=== PATIENT | male | born 1940 | race Caucasian/White ===

== ENCOUNTER 2018-09-27 12:51 | Outpatient (CLI) | payer MEDICARE ==
[~2018-09-27 12:51] MED LIST: Gadobenate Dimeglumine 529 MG/1 ML (20ML VIAL) ONE
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
--- NOTE | 2018-09-27 15:05 | MRI ---
MRI BRAIN WITH AND WITHOUT CONTRAST: INDICATIONS: Senile degeneration of brain. Memory loss. TECHNIQUE: Multiplanar, multisequential imaging of the brain obtained with and without contrast. FINDINGS: Mild to moderate cortical volume loss. The ventricles have normal size and position. Mild to modera te chronic ischemic white matter change. No evidence of restricted diffusion. No evidence of mass or edema. No abnormal enhancement. Intracranial internal carotid arteries, proximal cerebral arteries, and basilar arteries demonstrate expected flow voids. The dural venous sinuses are patent. IMPRESSION: Moderate cortical atrophy and moderate chronic ischemic white matter change. No acute process appare nt. POS: [facility]
== END 2018-09-27 12:52 | disposition home or self-care (01) ==
LOC: BICMRI 12:51
PROVIDERS: ATTEND Psychiatry & Neurology Neurology
DX: G31.1 Senile degeneration of brain, not elsewhere classified (principal); G31.9 Degenerative disease of nervous system, unspecified
CPT/HCPCS: 70210; 70250; 70553; 82565

== ENCOUNTER 2021-01-21 14:25 | Observation (INO) | payer MEDICARE ==
[2021-01-21 15:04] LABS: #Basophils 0.1 thou/uL (0.0-0.2); #Eosinphils 0.1 thou/uL (0.0-0.7); #Lymphocytes 1.1 thou/uL (1.20-3.40); #Neutrophils 10.5 thou/uL (1.40-6.50); %Basophils 0.5 % (0.0-1.0); %Eosinophils 0.5 % (0.0-10.0); %Lymphocytes 8.4 % (21.0-51.0); %Monocytes 7.9 % (0.0-10.0); %Neutrophils 82.7 % (42.0-75.0); Hemoglobin 12.4 g/dL (14.0-18.0); Mean Corpuscular HGB CONC 33.5 g/dL (32.0-36.0); Mean Corpuscular Hemoglobin 31.4 pg (27.0-31.0); Mean Corpuscular Volume 93.6 fL (78.0-98.0); Mean Platelet Volume 7.1 fL (7.4-10.4); Platelet Count 275 thou/uL (130-400); RBC Distribution Width 12.7 % (11.5-14.5); Red Blood Cell (RBC) Count 3.94 mill/uL (4.70-6.10); White Blood Cell (WBC) Count 12.7 thou/uL (4.8-10.8)
[2021-01-21] MEDS ORDERED: Bupivacaine 0.25% 10 ML VIAL ONE (15:07)
[2021-01-21 15:14] LABS: PTT 26.5 sec (22.9-36.1); Prothrombin Time 13.4 sec (12.0-14.7)
[2021-01-21 15:47] LABS: Albumin 4.1 g/dL (3.4-4.8)
[2021-01-21 15:48] LABS: Chloride 108 mmol/L (98-107); Potassium 4.2 mmol/L (3.5-5.1); Sodium 140 mmol/L (136-145)
[2021-01-21 15:49] LABS: Calcium 9.3 mg/dL (7.8-10.44); Glucose 164 mg/dL (83-110)
[2021-01-21 15:50] LABS: Globulin 2.8 g/dL (2.4-3.5); Protein, Total 6.9 g/dL (5.8-8.1)
[2021-01-21 15:51] LABS: Anion Gap 16 mmol/L (10-20); Bilirubin, Total 0.4 mg/dL (0.2-1.2); Carbon Dioxide 20 mmol/L (23-31)
[2021-01-21 15:52] LABS: Alkaline Phosphatase 155 U/L (40-110)
[2021-01-21 15:53] LABS: Calc. Creatinine Clearance 0 mL/min (70-130)
[2021-01-21] MEDS ORDERED: Morphine 4 MG/ML VIAL ONE (15:53)
[2021-01-21] MEDS ORDERED: Ondansetron PF 4 MG/2 ML Vial ONE (15:53)
[2021-01-21 15:54] LABS: BUN (Urea Nitrogen) 23 mg/dL (8.4-25.7)
[2021-01-21 15:55] LABS: ALT (SGPT) 25 U/L (8-55); AST (SGOT) 21 U/L (5-34)
[2021-01-21] MEDS ORDERED: Boostrix 0.5 ML (Tdap) VIAL ONE (16:24)
[2021-01-21] MEDS ORDERED: CEFAZOLIN 1 GM VIAL ONE (16:24)
[2021-01-21] MEDS ORDERED: Dextrose 50% Abboject 50 ML SYRINGE SLOW IVP PRN (16:58)
[2021-01-21] MEDS ORDERED: Ondansetron PF 4 MG/2 ML Vial IVP PRN (16:58)
[2021-01-21] MEDS ORDERED: hydrALAZINE 20 MG/ML VIAL SLOW IVP PRN (16:58)
[2021-01-21] MEDS ORDERED: Insulin Regular 300 UNITS/3 ML VIAL SC PRN ×2 (16:58)
[2021-01-21] MEDS ORDERED: Dextrose 5% in Water 1,000 ML IV PRN (16:58)
[2021-01-21] MEDS ORDERED: Acetaminophen 500 MG TAB PO PRN (17:03)
[2021-01-21 17:59] LABS: Magnesium 1.8 mg/dL (1.6-2.6); Phosphorus 2.1 mg/dL (2.3-4.7)
[2021-01-21] MEDS ORDERED: Bacitracin 1 PK ONE (18:03)
[2021-01-21] MEDS ORDERED: Acetaminophen 500 MG TAB ONE (18:10)
[2021-01-21] MEDS: Bacitracin 1 PK TOP SCH (22:43)
[2021-01-21 23:10] VITALS: BMI 29.7
[2021-01-22 05:51] LABS: #Lymphocytes 1.1 thou/uL (1.20-3.40); #Monocytes 1.4 thou/uL (0.11-0.59); #Neutrophils 10.8 thou/uL (1.40-6.50); %Basophils 0.2 % (0.0-1.0); %Eosinophils 0.3 % (0.0-10.0); %Monocytes 10.1 % (0.0-10.0); %Neutrophils 81.4 % (42.0-75.0); Hemoglobin 11.5 g/dL (14.0-18.0); Mean Corpuscular HGB CONC 33.4 g/dL (32.0-36.0); Mean Corpuscular Hemoglobin 31.8 pg (27.0-31.0); Mean Corpuscular Volume 95.3 fL (78.0-98.0); Platelet Count 231 thou/uL (130-400); RBC Distribution Width 12.7 % (11.5-14.5); Red Blood Cell (RBC) Count 3.61 mill/uL (4.70-6.10); White Blood Cell (WBC) Count 13.3 thou/uL (4.8-10.8)
[2021-01-22 06:14] LABS: Anion Gap 12 mmol/L (10-20); BUN (Urea Nitrogen) 21 mg/dL (8.4-25.7); Calc. Creatinine Clearance 74 mL/min (70-130); Calcium 8.9 mg/dL (7.8-10.44); Carbon Dioxide 24 mmol/L (23-31); Chloride 109 mmol/L (98-107); Glucose 136 mg/dL (83-110); Magnesium 1.8 mg/dL (1.6-2.6); Phosphorus 2.4 mg/dL (2.3-4.7); Potassium 3.7 mmol/L (3.5-5.1); Sodium 141 mmol/L (136-145)
[2021-01-22] MEDS ORDERED: traMADol HCl 50 MG TAB PO PRN (06:36)
[2021-01-22] MEDS: Bacitracin 1 PK TOP SCH (08:16)
[2021-01-22] MEDS ORDERED: Hydrochlorothiazide 25 MG TAB PO SCH (09:00)
[2021-01-22] MEDS ORDERED: Finasteride 5 MG TAB PO SCH (09:00)
[2021-01-22] MEDS ORDERED: Cholecalciferol 1,000 UNITS (25 MCG) TAB PO SCH (09:00)
[2021-01-22] MEDS ORDERED: Metoprolol Tartrate 25 MG TAB PO SCH (09:00)
[2021-01-22] MEDS ORDERED: Potassium Phosphate 30 MMOL, Magnesium Sulfate 2 GM in Sodium Chloride 0.9% 250 ML IVPB SCH (09:00)
[2021-01-22] MEDS ORDERED: metFORMIN 850 MG TAB PO SCH (09:00)
[2021-01-22] MEDS ORDERED: Magnesium Sulfate 2 GM in Sodium Chloride 0.9% 100 ML IVPB SCH (09:00)
[2021-01-22 11:39] LABS: SARS-CoV-2 PCR by NAA Not Detected (NotDetected)
[2021-01-22 12:30] VITALS: BP 152/74; TEMP 96.7
[2021-01-22] MEDS ORDERED: Tamsulosin HCl 0.4 MG CAP PO SCH (21:00)
[2021-01-22] MEDS ORDERED: Donepezil HCl 5 MG TAB PO SCH (21:00)
== END 2021-01-22 16:15 ==
LOC: ERS 14:25 → SURG B 17:04 → INTOOBSV 17:04
PROVIDERS: ADMIT Surgery; ATTEND Surgery
DX: S06.5X0A Traumatic subdural hemorrhage without loss of consciousness, initial encounter (principal); S02.19XA Other fracture of base of skull, initial encounter for closed fracture; S02.832A Fracture of medial orbital wall, left side, initial encounter for closed fracture; S02.122A Fracture of orbital roof, left side, initial encounter for closed fracture; S02.842A Fracture of lateral orbital wall, left side, initial encounter for closed fracture; S02.40DA Maxillary fracture, left side, initial encounter for closed fracture; S61.011A Laceration without foreign body of right thumb without damage to nail, initial encounter; S61.411A Laceration without foreign body of right hand, initial encounter; S40.212A Abrasion of left shoulder, initial encounter; R55 Syncope and collapse; F32.9 Major depressive disorder, single episode, unspecified; G89.11 Acute pain due to trauma; I10 Essential (primary) hypertension; E11.9 Type 2 diabetes mellitus without complications; G30.9 Alzheimer's disease, unspecified; F02.80 Dementia in other diseases classified elsewhere, unspecified severity, without behavioral disturbance, psychotic disturbance, mood disturbance, and anxiety; I25.2 Old myocardial infarction; K21.9 Gastro-esophageal reflux disease without esophagitis; E78.5 Hyperlipidemia, unspecified; I25.10 Atherosclerotic heart disease of native coronary artery without angina pectoris; M19.041 Primary osteoarthritis, right hand; Z20.822 Contact with and (suspected) exposure to COVID-19; Z95.1 Presence of aortocoronary bypass graft; Z79.84 Long term (current) use of oral hypoglycemic drugs; Z79.82 Long term (current) use of aspirin; Z79.899 Other long term (current) drug therapy; W18.39XA Other fall on same level, initial encounter; Y92.096 Garden or yard of other non-institutional residence as the place of occurrence of the external cause
CPT/HCPCS: 70450 ×2; 72125; 73030; 73110; 73140; 80048; 80053; 82962 ×2; 83735 ×2; 84100 ×2; 84484; 85025 ×2; 85610; 85730; 90715; 93005; 96374; 97139 ×4; G0378 ×3; U0003; U0005; 36415; 36416; J0690; J1815; J2270; J2405; J3475; J7030; S0020

== ENCOUNTER 2021-03-09 16:39 | Inpatient (IN) | payer MEDICARE ==
[~2021-03-09 16:39] MED LIST changes: -Gadobenate Dimeglumine 529 MG/1 ML (20ML VIAL) ONE; +Iopamidol-370 76% 500 ML 1 ML ONE
[2021-03-09 17:58] LABS: #Basophils 0.1 thou/uL (0.0-0.2); #Eosinphils 0.1 thou/uL (0.0-0.7); #Lymphocytes 0.7 thou/uL (1.20-3.40); #Monocytes 1.2 thou/uL (0.11-0.59); #Neutrophils 14.3 thou/uL (1.40-6.50); %Basophils 0.3 % (0.0-1.0); %Eosinophils 0.7 % (0.0-10.0); %Lymphocytes 4.4 % (21.0-51.0); %Monocytes 7.1 % (0.0-10.0); %Neutrophils 87.5 % (42.0-75.0); Hemoglobin 12.4 g/dL (14.0-18.0); Mean Corpuscular HGB CONC 31.8 g/dL (32.0-36.0); Mean Corpuscular Hemoglobin 29.1 pg (27.0-31.0); Mean Corpuscular Volume 91.4 fL (78.0-98.0); Platelet Count 401 thou/uL (130-400); Red Blood Cell (RBC) Count 4.27 mill/uL (4.70-6.10); White Blood Cell (WBC) Count 16.4 thou/uL (4.8-10.8)
[2021-03-09 18:13] LABS: ALT (SGPT) 46 U/L (8-55); AST (SGOT) 35 U/L (5-34); Albumin 3.2 g/dL (3.4-4.8); Alkaline Phosphatase 136 U/L (40-110); Anion Gap 16 mmol/L (10-20); BUN (Urea Nitrogen) 24 mg/dL (8.4-25.7); Bilirubin, Total 1.1 mg/dL (0.2-1.2); Calc. Creatinine Clearance 0 mL/min (70-130); Calcium 8.7 mg/dL (7.8-10.44); Carbon Dioxide 30 mmol/L (23-31); Chloride 93 mmol/L (98-107); Globulin 3.7 g/dL (2.4-3.5); Glucose 148 mg/dL (83-110); Potassium 3.1 mmol/L (3.5-5.1); Protein, Total 6.9 g/dL (5.8-8.1); Sodium 136 mmol/L (136-145)
[2021-03-09 18:39] LABS: CKMB 0.8 ng/mL (0-6.6)
[2021-03-09] MEDS ORDERED: Aspirin Chewable 81 MG TAB ONE (18:40)
[2021-03-09] MEDS ORDERED: Dexamethasone 10 MG/ML VIAL ONE (18:40)
[2021-03-09] MEDS ORDERED: Azithromycin 500 MG VIAL ONE (18:40)
[2021-03-09] MEDS ORDERED: Enoxaparin Sodium 100 MG/ML SYRINGE ONE (19:24)
[2021-03-09] MEDS ORDERED: Acetaminophen 325 MG TAB PO PRN (20:26)
[2021-03-09] MEDS ORDERED: Ondansetron ODT 4 MG TAB PO PRN (20:26)
[2021-03-09] MEDS ORDERED: Ondansetron PF 4 MG/2 ML Vial IVP PRN (20:26)
[2021-03-09] MEDS ORDERED: Acetaminophen 650 MG Suppository PR PRN (20:26)
[2021-03-09] MEDS ORDERED: Dextrose 50% Abboject 50 ML SYRINGE SLOW IVP PRN (21:06)
[2021-03-09] MEDS ORDERED: HumaLOG 300 UNITS/3 ML VIAL SC PRN (21:06)
[2021-03-09] MEDS ORDERED: Dextrose 5% in Water 1,000 ML IV PRN (21:06)
[2021-03-09 21:28] LABS: Lactic Acid 2.1 mmol/L (0.5-2.2)
[2021-03-10 00:26] LABS: Troponin I 0.073 ng/mL (< 0.028)
[2021-03-10 05:44] LABS: Anion Gap 17 mmol/L (10-20); BUN (Urea Nitrogen) 24 mg/dL (8.4-25.7); Calc. Creatinine Clearance 82 mL/min (70-130); Calcium 8.1 mg/dL (7.8-10.44); Carbon Dioxide 27 mmol/L (23-31); Chloride 98 mmol/L (98-107); Glucose 187 mg/dL (83-110); Potassium 3.2 mmol/L (3.5-5.1); Sodium 139 mmol/L (136-145)
[2021-03-10 05:53] LABS: Hemoglobin 11.3 g/dL (14.0-18.0); Mean Corpuscular HGB CONC 31.3 g/dL (32.0-36.0); Mean Corpuscular Hemoglobin 28.8 pg (27.0-31.0); Mean Corpuscular Volume 92.1 fL (78.0-98.0); Mean Platelet Volume 7.5 fL (7.4-10.4); Platelet Count 307 thou/uL (130-400); RBC Distribution Width 12.9 % (11.5-14.5); Red Blood Cell (RBC) Count 3.91 mill/uL (4.70-6.10); White Blood Cell (WBC) Count 12.7 thou/uL (4.8-10.8)
[2021-03-10] MEDS: HumaLOG 300 UNITS/3 ML VIAL SC PRN ×3 (06:35→16:28)
[2021-03-10 08:12] LABS: Band 5 % (5-11); Lymphocytes 7 % (21-51); MDiff Complete? YES; Monocytes 3 % (0-10); Neutrophil 85 % (42-75)
[2021-03-10] MEDS: Enoxaparin Sodium 100 MG/ML SYRINGE SC SCH ×2 (09:33→20:52)
[2021-03-10] MEDS: Dexamethasone 10 MG/ML VIAL SLOW IVP SCH (09:34)
[2021-03-10] MEDS: Ascorbic Acid 500 mg Chewable Tablet PO SCH (09:34)
[2021-03-10] MEDS: Zinc Sulfate 220 MG CAP PO SCH (09:34)
[2021-03-10] MEDS: Pantoprazole 40 MG VIAL IVP SCH (09:34)
[2021-03-10] MEDS: Cholecalciferol (Vitamin D3) 400 UNITS TAB PO SCH (09:34)
[2021-03-10] MEDS ORDERED: Potassium Chloride 20 MEQ TAB PO SCH (09:45)
[2021-03-11 05:53] LABS: Anion Gap 13 mmol/L (10-20); BUN (Urea Nitrogen) 29 mg/dL (8.4-25.7); CK (CPK) 30 U/L (30-200); CRP (Inflammatory) 14.76 mg/dL (= or < 0.5); Calc. Creatinine Clearance 81 mL/min (70-130); Calcium 8.4 mg/dL (7.8-10.44); Carbon Dioxide 29 mmol/L (23-31); Chloride 101 mmol/L (98-107); Glucose 110 mg/dL (83-110); Potassium 3.2 mmol/L (3.5-5.1); Sodium 140 mmol/L (136-145)
[2021-03-11 06:02] LABS: Hemoglobin 11.8 g/dL (14.0-18.0); Mean Corpuscular HGB CONC 32.1 g/dL (32.0-36.0); Mean Corpuscular Hemoglobin 29.7 pg (27.0-31.0); Mean Corpuscular Volume 92.5 fL (78.0-98.0); Mean Platelet Volume 7.2 fL (7.4-10.4); Platelet Count 434 thou/uL (130-400); Red Blood Cell (RBC) Count 3.97 mill/uL (4.70-6.10); White Blood Cell (WBC) Count 18.4 thou/uL (4.8-10.8)
[2021-03-11 06:03] LABS: Band 5 % (5-11); Eosinophils 1 % (0-10); Lymphocytes 7 % (21-51); MDiff Complete? YES; Monocytes 2 % (0-10); Neutrophil 85 % (42-75)
[2021-03-11] MEDS: Enoxaparin Sodium 100 MG/ML SYRINGE SC SCH ×2 (08:44→20:42)
[2021-03-11] MEDS: Ascorbic Acid 500 mg Chewable Tablet PO SCH (08:44)
[2021-03-11] MEDS: Cholecalciferol (Vitamin D3) 400 UNITS TAB PO SCH (08:45)
[2021-03-11] MEDS: Pantoprazole 40 MG VIAL IVP SCH (08:45)
[2021-03-11] MEDS: Dexamethasone 10 MG/ML VIAL SLOW IVP SCH (08:45)
[2021-03-11] MEDS: Zinc Sulfate 220 MG CAP PO SCH (08:45)
[2021-03-11] MEDS: Potassium Chloride 20 MEQ in Premix Bag 1 BAG IVPB SCH ×2 (10:46→12:27)
[2021-03-11] MEDS ORDERED: Potassium Chloride 20 MEQ TAB PO SCH (12:15)
[2021-03-11] MEDS: HumaLOG 300 UNITS/3 ML VIAL SC PRN ×2 (12:33→17:52)
[2021-03-12 05:55] LABS: #Eosinphils 0.1 thou/uL (0.0-0.7); #Lymphocytes 1.2 thou/uL (1.20-3.40); #Monocytes 1.1 thou/uL (0.11-0.59); #Neutrophils 15.1 thou/uL (1.40-6.50); %Basophils 0.1 % (0.0-1.0); %Eosinophils 0.8 % (0.0-10.0); %Lymphocytes 6.8 % (21.0-51.0); %Neutrophils 86.3 % (42.0-75.0); Hemoglobin 12.2 g/dL (14.0-18.0); Mean Corpuscular HGB CONC 30.4 g/dL (32.0-36.0); Mean Platelet Volume 6.9 fL (7.4-10.4); Platelet Count 522 thou/uL (130-400); Red Blood Cell (RBC) Count 4.35 mill/uL (4.70-6.10); White Blood Cell (WBC) Count 17.5 thou/uL (4.8-10.8)
[2021-03-12 06:18] LABS: Anion Gap 17 mmol/L (10-20); BUN (Urea Nitrogen) 28 mg/dL (8.4-25.7); Calc. Creatinine Clearance 76 mL/min (70-130); Calcium 8.4 mg/dL (7.8-10.44); Carbon Dioxide 26 mmol/L (23-31); Chloride 106 mmol/L (98-107); Glucose 133 mg/dL (83-110); Potassium 3.5 mmol/L (3.5-5.1); Sodium 145 mmol/L (136-145)
[2021-03-12] MEDS: Enoxaparin Sodium 100 MG/ML SYRINGE SC SCH ×2 (09:00→20:53)
[2021-03-12] MEDS: Zinc Sulfate 220 MG CAP PO SCH (09:01)
[2021-03-12] MEDS: Dexamethasone 10 MG/ML VIAL SLOW IVP SCH (09:01)
[2021-03-12] MEDS: Ascorbic Acid 500 mg Chewable Tablet PO SCH (09:01)
[2021-03-12] MEDS: Cholecalciferol (Vitamin D3) 400 UNITS TAB PO SCH (09:01)
[2021-03-12] MEDS: HumaLOG 300 UNITS/3 ML VIAL SC PRN ×2 (13:07→16:52)
[2021-03-13 05:48] LABS: #Eosinphils 0.1 thou/uL (0.0-0.7); #Lymphocytes 1.6 thou/uL (1.20-3.40); #Monocytes 0.9 thou/uL (0.11-0.59); #Neutrophils 10.2 thou/uL (1.40-6.50); %Basophils 0.3 % (0.0-1.0); %Eosinophils 0.8 % (0.0-10.0); %Lymphocytes 12.7 % (21.0-51.0); %Monocytes 6.7 % (0.0-10.0); %Neutrophils 79.4 % (42.0-75.0); Hemoglobin 11.5 g/dL (14.0-18.0); Mean Corpuscular HGB CONC 31.7 g/dL (32.0-36.0); Mean Corpuscular Hemoglobin 29.4 pg (27.0-31.0); Mean Corpuscular Volume 92.8 fL (78.0-98.0); Mean Platelet Volume 6.8 fL (7.4-10.4); Platelet Count 468 thou/uL (130-400); RBC Distribution Width 13.1 % (11.5-14.5); Red Blood Cell (RBC) Count 3.91 mill/uL (4.70-6.10); White Blood Cell (WBC) Count 12.8 thou/uL (4.8-10.8)
[2021-03-13 06:26] LABS: Anion Gap 14 mmol/L (10-20); BUN (Urea Nitrogen) 27 mg/dL (8.4-25.7); Calc. Creatinine Clearance 86 mL/min (70-130); Carbon Dioxide 24 mmol/L (23-31); Chloride 107 mmol/L (98-107); Glucose 111 mg/dL (83-110); Potassium 3.7 mmol/L (3.5-5.1); Sodium 141 mmol/L (136-145)
[2021-03-13] MEDS: Cholecalciferol (Vitamin D3) 400 UNITS TAB PO SCH (09:36)
[2021-03-13] MEDS: Ascorbic Acid 500 mg Chewable Tablet PO SCH (09:36)
[2021-03-13] MEDS: Enoxaparin Sodium 100 MG/ML SYRINGE SC SCH ×2 (09:36→20:52)
[2021-03-13] MEDS: Zinc Sulfate 220 MG CAP PO SCH (09:36)
[2021-03-13] MEDS: Dexamethasone 10 MG/ML VIAL SLOW IVP SCH (09:37)
[2021-03-13] MEDS: HumaLOG 300 UNITS/3 ML VIAL SC PRN (17:50)
[2021-03-14 05:53] LABS: #Eosinphils 0.1 thou/uL (0.0-0.7); #Lymphocytes 1.5 thou/uL (1.20-3.40); #Monocytes 0.7 thou/uL (0.11-0.59); #Neutrophils 12.2 thou/uL (1.40-6.50); %Basophils 0.1 % (0.0-1.0); %Eosinophils 0.5 % (0.0-10.0); %Lymphocytes 10.3 % (21.0-51.0); %Monocytes 4.8 % (0.0-10.0); %Neutrophils 84.4 % (42.0-75.0); Hemoglobin 11.9 g/dL (14.0-18.0); Mean Corpuscular HGB CONC 31.4 g/dL (32.0-36.0); Mean Corpuscular Hemoglobin 29.2 pg (27.0-31.0); Platelet Count 452 thou/uL (130-400); RBC Distribution Width 13.1 % (11.5-14.5); Red Blood Cell (RBC) Count 4.06 mill/uL (4.70-6.10); White Blood Cell (WBC) Count 14.5 thou/uL (4.8-10.8)
[2021-03-14 06:12] LABS: Anion Gap 13 mmol/L (10-20); BUN (Urea Nitrogen) 25 mg/dL (8.4-25.7); Calc. Creatinine Clearance 85 mL/min (70-130); Calcium 8.2 mg/dL (7.8-10.44); Carbon Dioxide 26 mmol/L (23-31); Chloride 109 mmol/L (98-107); Glucose 100 mg/dL (83-110); Potassium 3.7 mmol/L (3.5-5.1); Sodium 144 mmol/L (136-145)
[2021-03-14] MEDS: Zinc Sulfate 220 MG CAP PO SCH (09:18)
[2021-03-14] MEDS: Ascorbic Acid 500 mg Chewable Tablet PO SCH (09:18)
[2021-03-14] MEDS: Cholecalciferol (Vitamin D3) 400 UNITS TAB PO SCH (09:18)
[2021-03-14] MEDS: Dexamethasone 10 MG/ML VIAL SLOW IVP SCH (09:19)
[2021-03-14] MEDS: Enoxaparin Sodium 100 MG/ML SYRINGE SC SCH (09:19)
[2021-03-14] MEDS: Apixaban 5 MG TAB PO SCH (20:42)
[2021-03-15 06:16] LABS: #Eosinphils 0.1 thou/uL (0.0-0.7); #Lymphocytes 1.3 thou/uL (1.20-3.40); #Monocytes 0.7 thou/uL (0.11-0.59); #Neutrophils 11.5 thou/uL (1.40-6.50); %Basophils 0.2 % (0.0-1.0); %Eosinophils 0.5 % (0.0-10.0); %Lymphocytes 9.7 % (21.0-51.0); %Monocytes 5.3 % (0.0-10.0); %Neutrophils 84.3 % (42.0-75.0); Hemoglobin 11.3 g/dL (14.0-18.0); Mean Corpuscular HGB CONC 32.7 g/dL (32.0-36.0); Mean Corpuscular Hemoglobin 30.4 pg (27.0-31.0); Mean Corpuscular Volume 92.8 fL (78.0-98.0); Mean Platelet Volume 6.8 fL (7.4-10.4); Platelet Count 439 thou/uL (130-400); RBC Distribution Width 13.1 % (11.5-14.5); Red Blood Cell (RBC) Count 3.71 mill/uL (4.70-6.10); White Blood Cell (WBC) Count 13.7 thou/uL (4.8-10.8)
[2021-03-15 06:41] LABS: Anion Gap 11 mmol/L (10-20); BUN (Urea Nitrogen) 26 mg/dL (8.4-25.7); Calc. Creatinine Clearance 97 mL/min (70-130); Calcium 8.1 mg/dL (7.8-10.44); Carbon Dioxide 26 mmol/L (23-31); Chloride 110 mmol/L (98-107); Glucose 113 mg/dL (83-110); Potassium 3.9 mmol/L (3.5-5.1); Sodium 143 mmol/L (136-145)
[2021-03-15] MEDS: Cholecalciferol (Vitamin D3) 400 UNITS TAB PO SCH (11:21)
[2021-03-15] MEDS: Apixaban 5 MG TAB PO SCH ×2 (11:21→21:33)
[2021-03-15] MEDS: Ascorbic Acid 500 mg Chewable Tablet PO SCH (11:21)
[2021-03-15] MEDS: Zinc Sulfate 220 MG CAP PO SCH (11:22)
[2021-03-15] MEDS: Dexamethasone 10 MG/ML VIAL SLOW IVP SCH (11:22)
[2021-03-15] MEDS: HumaLOG 300 UNITS/3 ML VIAL SC PRN (19:10)
[2021-03-16 05:44] LABS: ALT (SGPT) 31 U/L (8-55); AST (SGOT) 23 U/L (5-34); Albumin 2.7 g/dL (3.4-4.8); Alkaline Phosphatase 109 U/L (40-110); Anion Gap 10 mmol/L (10-20); BUN (Urea Nitrogen) 25 mg/dL (8.4-25.7); Bilirubin, Total 0.5 mg/dL (0.2-1.2); CRP (Inflammatory) 4.97 mg/dL (= or < 0.5); Calc. Creatinine Clearance 99 mL/min (70-130); Calcium 8.1 mg/dL (7.8-10.44); Carbon Dioxide 23 mmol/L (23-31); Chloride 111 mmol/L (98-107); Globulin 3.2 g/dL (2.4-3.5); Glucose 109 mg/dL (83-110); Potassium 3.9 mmol/L (3.5-5.1); Protein, Total 5.9 g/dL (5.8-8.1); Sodium 140 mmol/L (136-145)
[2021-03-16] MEDS: Apixaban 5 MG TAB PO SCH ×2 (09:03→20:55)
[2021-03-16] MEDS: Zinc Sulfate 220 MG CAP PO SCH (09:03)
[2021-03-16] MEDS: Benzonatate 100 MG CAP PO PRN (09:03)
[2021-03-16] MEDS: Ascorbic Acid 500 mg Chewable Tablet PO SCH (09:03)
[2021-03-16] MEDS: Dexamethasone 10 MG/ML VIAL SLOW IVP SCH (09:04)
[2021-03-16] MEDS: Cholecalciferol (Vitamin D3) 400 UNITS TAB PO SCH (09:04)
[2021-03-16] MEDS: HumaLOG 300 UNITS/3 ML VIAL SC PRN (10:52)
[2021-03-17] MEDS: Dexamethasone 10 MG/ML VIAL SLOW IVP SCH (09:15)
[2021-03-17] MEDS: Benzonatate 100 MG CAP PO PRN (09:15)
[2021-03-17] MEDS: Ascorbic Acid 500 mg Chewable Tablet PO SCH (09:15)
[2021-03-17] MEDS: Apixaban 5 MG TAB PO SCH ×2 (09:15→19:52)
[2021-03-17] MEDS: Cholecalciferol (Vitamin D3) 400 UNITS TAB PO SCH (09:15)
[2021-03-17] MEDS: Zinc Sulfate 220 MG CAP PO SCH (09:15)
[2021-03-17] MEDS: HumaLOG 300 UNITS/3 ML VIAL SC PRN (17:48)
[2021-03-18] MEDS: Ascorbic Acid 500 mg Chewable Tablet PO SCH (09:17)
[2021-03-18] MEDS: Zinc Sulfate 220 MG CAP PO SCH (09:18)
[2021-03-18] MEDS: Cholecalciferol (Vitamin D3) 400 UNITS TAB PO SCH (09:18)
[2021-03-18] MEDS: Apixaban 5 MG TAB PO SCH ×2 (09:18→21:24)
[2021-03-18] MEDS: Dexamethasone 10 MG/ML VIAL SLOW IVP SCH (09:19)
[2021-03-18] MEDS ORDERED: Polyethylene Glycol 3350 17 GM Packet PO PRN (10:54)
[2021-03-18] MEDS: Simethicone Chewable 80 MG TAB PO SCH ×3 (12:09→21:24)
[2021-03-18] MEDS: HumaLOG 300 UNITS/3 ML VIAL SC PRN (17:55)
[2021-03-18] MEDS: Donepezil HCl 5 MG TAB PO SCH (21:24)
[2021-03-18] MEDS: Tamsulosin HCl 0.4 MG CAP PO SCH (21:24)
[2021-03-19] MEDS: Simethicone Chewable 80 MG TAB PO SCH ×4 (09:25→22:40)
[2021-03-19] MEDS: Apixaban 5 MG TAB PO SCH ×2 (09:25→21:13)
[2021-03-19] MEDS: Ascorbic Acid 500 mg Chewable Tablet PO SCH (09:25)
[2021-03-19] MEDS: Benzonatate 100 MG CAP PO PRN (09:25)
[2021-03-19] MEDS: Cholecalciferol (Vitamin D3) 400 UNITS TAB PO SCH (09:25)
[2021-03-19] MEDS: Zinc Sulfate 220 MG CAP PO SCH (09:26)
[2021-03-19] MEDS: Metoprolol Tartrate 25 MG TAB PO SCH (09:26)
[2021-03-19] MEDS: Finasteride 5 MG TAB PO SCH (09:27)
[2021-03-19] MEDS: Dexamethasone 10 MG/ML VIAL SLOW IVP SCH (09:33)
[2021-03-19] MEDS: HumaLOG 300 UNITS/3 ML VIAL SC PRN (11:49)
[2021-03-19 13:02] LABS: #Lymphocytes 0.5 thou/uL (1.20-3.40); #Monocytes 0.7 thou/uL (0.11-0.59); #Neutrophils 12.2 thou/uL (1.40-6.50); %Basophils 0.1 % (0.0-1.0); %Eosinophils 0.2 % (0.0-10.0); %Lymphocytes 3.8 % (21.0-51.0); %Monocytes 5.3 % (0.0-10.0); %Neutrophils 90.7 % (42.0-75.0); Mean Corpuscular HGB CONC 31.8 g/dL (32.0-36.0); Mean Corpuscular Hemoglobin 29.1 pg (27.0-31.0); Mean Corpuscular Volume 91.7 fL (78.0-98.0); Mean Platelet Volume 6.7 fL (7.4-10.4); Platelet Count 454 thou/uL (130-400); RBC Distribution Width 13.4 % (11.5-14.5); Red Blood Cell (RBC) Count 4.11 mill/uL (4.70-6.10); White Blood Cell (WBC) Count 13.4 thou/uL (4.8-10.8)
[2021-03-19 13:25] LABS: Anion Gap 11 mmol/L (10-20); BUN (Urea Nitrogen) 25 mg/dL (8.4-25.7); Calc. Creatinine Clearance 66 mL/min (70-130); Calcium 8.5 mg/dL (7.8-10.44); Carbon Dioxide 22 mmol/L (23-31); Chloride 110 mmol/L (98-107); Glucose 172 mg/dL (83-110); Potassium 4.3 mmol/L (3.5-5.1); Sodium 139 mmol/L (136-145)
[2021-03-19] MEDS: Tamsulosin HCl 0.4 MG CAP PO SCH (21:13)
[2021-03-19] MEDS: Donepezil HCl 5 MG TAB PO SCH (21:13)
[2021-03-19] MEDS: Atorvastatin Calcium 40 MG TAB PO SCH (21:13)
[2021-03-20] MEDS: Apixaban 5 MG TAB PO SCH ×2 (10:14→22:12)
[2021-03-20] MEDS: Ascorbic Acid 500 mg Chewable Tablet PO SCH (10:14)
[2021-03-20] MEDS: Benzonatate 100 MG CAP PO PRN (10:14)
[2021-03-20] MEDS: Metoprolol Tartrate 25 MG TAB PO SCH (10:15)
[2021-03-20] MEDS: Simethicone Chewable 80 MG TAB PO SCH ×3 (10:15→22:12)
[2021-03-20] MEDS: Zinc Sulfate 220 MG CAP PO SCH (10:16)
[2021-03-20] MEDS: Finasteride 5 MG TAB PO SCH (10:16)
[2021-03-20] MEDS: Cholecalciferol (Vitamin D3) 400 UNITS TAB PO SCH (10:16)
[2021-03-20] MEDS: Dexamethasone 10 MG/ML VIAL SLOW IVP SCH (10:21)
[2021-03-20] MEDS: HumaLOG 300 UNITS/3 ML VIAL SC PRN ×2 (10:37→17:19)
[2021-03-20 11:35] VITALS: BMI 27.2
[2021-03-20] MEDS: Tamsulosin HCl 0.4 MG CAP PO SCH (22:12)
[2021-03-20] MEDS: Donepezil HCl 5 MG TAB PO SCH (22:12)
[2021-03-20] MEDS: Atorvastatin Calcium 40 MG TAB PO SCH (22:13)
[2021-03-21] MEDS: Simethicone Chewable 80 MG TAB PO SCH ×5 (00:29→20:28)
[2021-03-21 05:29] LABS: #Lymphocytes 1.2 thou/uL (1.20-3.40); #Monocytes 0.8 thou/uL (0.11-0.59); #Neutrophils 9.6 thou/uL (1.40-6.50); %Basophils 0.3 % (0.0-1.0); %Eosinophils 0.4 % (0.0-10.0); %Lymphocytes 10.5 % (21.0-51.0); %Monocytes 6.9 % (0.0-10.0); Hemoglobin 11.5 g/dL (14.0-18.0); Mean Corpuscular HGB CONC 30.9 g/dL (32.0-36.0); Mean Corpuscular Hemoglobin 28.7 pg (27.0-31.0); Mean Corpuscular Volume 93.1 fL (78.0-98.0); Mean Platelet Volume 6.6 fL (7.4-10.4); Platelet Count 443 thou/uL (130-400); RBC Distribution Width 13.4 % (11.5-14.5); Red Blood Cell (RBC) Count 4.02 mill/uL (4.70-6.10); White Blood Cell (WBC) Count 11.7 thou/uL (4.8-10.8)
[2021-03-21 05:50] LABS: Anion Gap 11 mmol/L (10-20); BUN (Urea Nitrogen) 27 mg/dL (8.4-25.7); Calc. Creatinine Clearance 75 mL/min (70-130); Calcium 8.5 mg/dL (7.8-10.44); Carbon Dioxide 23 mmol/L (23-31); Chloride 111 mmol/L (98-107); Glucose 107 mg/dL (83-110); Potassium 3.8 mmol/L (3.5-5.1); Sodium 141 mmol/L (136-145)
[2021-03-21] MEDS: Dexamethasone 10 MG/ML VIAL SLOW IVP SCH (08:31)
[2021-03-21] MEDS: Cholecalciferol (Vitamin D3) 400 UNITS TAB PO SCH (08:31)
[2021-03-21] MEDS: Apixaban 5 MG TAB PO SCH ×2 (08:31→20:28)
[2021-03-21] MEDS: Zinc Sulfate 220 MG CAP PO SCH (08:31)
[2021-03-21] MEDS: Finasteride 5 MG TAB PO SCH (08:32)
[2021-03-21] MEDS: Metoprolol Tartrate 25 MG TAB PO SCH (08:32)
[2021-03-21] MEDS: Ascorbic Acid 500 mg Chewable Tablet PO SCH (08:32)
[2021-03-21] MEDS: Donepezil HCl 5 MG TAB PO SCH (20:28)
[2021-03-21] MEDS: Atorvastatin Calcium 40 MG TAB PO SCH (20:28)
[2021-03-21] MEDS: Tamsulosin HCl 0.4 MG CAP PO SCH (20:28)
[2021-03-22 05:19] LABS: #Eosinphils 0.2 thou/uL (0.0-0.7); #Lymphocytes 1.6 thou/uL (1.20-3.40); #Neutrophils 12.2 thou/uL (1.40-6.50); %Basophils 0.1 % (0.0-1.0); %Eosinophils 1.1 % (0.0-10.0); %Lymphocytes 10.9 % (21.0-51.0); %Monocytes 6.8 % (0.0-10.0); %Neutrophils 81.1 % (42.0-75.0); Mean Corpuscular HGB CONC 33.4 g/dL (32.0-36.0); Mean Corpuscular Hemoglobin 30.7 pg (27.0-31.0); Mean Corpuscular Volume 91.8 fL (78.0-98.0); Mean Platelet Volume 6.9 fL (7.4-10.4); Platelet Count 474 thou/uL (130-400); RBC Distribution Width 13.3 % (11.5-14.5); Red Blood Cell (RBC) Count 3.93 mill/uL (4.70-6.10)
[2021-03-22 05:46] LABS: Anion Gap 10 mmol/L (10-20); BUN (Urea Nitrogen) 25 mg/dL (8.4-25.7); Calc. Creatinine Clearance 71 mL/min (70-130); Calcium 8.4 mg/dL (7.8-10.44); Carbon Dioxide 23 mmol/L (23-31); Chloride 111 mmol/L (98-107); Glucose 106 mg/dL (83-110); Potassium 4.4 mmol/L (3.5-5.1); Sodium 140 mmol/L (136-145)
[2021-03-22] MEDS: Simethicone Chewable 80 MG TAB PO SCH ×3 (09:05→16:03)
[2021-03-22] MEDS: Ascorbic Acid 500 mg Chewable Tablet PO SCH (09:17)
[2021-03-22] MEDS: Dexamethasone 10 MG/ML VIAL SLOW IVP SCH (09:17)
[2021-03-22] MEDS: Apixaban 5 MG TAB PO SCH (09:17)
[2021-03-22] MEDS: Zinc Sulfate 220 MG CAP PO SCH (09:19)
[2021-03-22] MEDS: Metoprolol Tartrate 25 MG TAB PO SCH (09:19)
[2021-03-22] MEDS: Cholecalciferol (Vitamin D3) 400 UNITS TAB PO SCH (09:20)
[2021-03-22] MEDS: Finasteride 5 MG TAB PO SCH (09:20)
[2021-03-22 15:27] VITALS: BP 126/72; TEMP 97.8
[2021-03-22] MEDS: HumaLOG 300 UNITS/3 ML VIAL SC PRN (16:03)
== END 2021-03-22 18:52 | DRG 177 ==
LOC: ERS 16:39 → 2SW 20:09
PROVIDERS: ADMIT Student in an Organized Health Care Education/Training Program; ATTEND Internal Medicine
PROC: 8E0ZXY6 Isolation (ICD-10-PCS; principal; 2021-03-09)
DX: U07.1 COVID-19 (principal); J96.01 Acute respiratory failure with hypoxia; J12.82 Pneumonia due to coronavirus disease 2019; I26.99 Other pulmonary embolism without acute cor pulmonale; I10 Essential (primary) hypertension; F03.90 Unspecified dementia, unspecified severity, without behavioral disturbance, psychotic disturbance, mood disturbance, and anxiety; I25.10 Atherosclerotic heart disease of native coronary artery without angina pectoris; K21.9 Gastro-esophageal reflux disease without esophagitis; R79.89 Other specified abnormal findings of blood chemistry; E78.5 Hyperlipidemia, unspecified; R53.1 Weakness; E87.6 Hypokalemia; I25.2 Old myocardial infarction; Z95.1 Presence of aortocoronary bypass graft; Z79.899 Other long term (current) drug therapy
CPT/HCPCS: 36415; 36416; 70450; 71045; 71275; 80048; 80053; 82550; 82553; 82728; 83605; 83880; 84484; 85025; 86140; 87040; 93005; 93306; 96365; 96366; 96372; 96375; C9113; J0456; J1100; J1650; J1815; J1956; J3480; Q9967

== ENCOUNTER 2024-04-06 20:22 | Emergency (ER) | payer MEDICARE ==
[2024-04-06 22:22] LABS: #Basophils 0.03 10x3/uL (0.0-0.2); %Basophils 0.4 % (0.0-1.0); %Eosinophils 1.1 % (0.0-10.0); %Lymphocytes 15.4 % (21.0-51.0); %Monocytes 11.4 % (0.0-10.0); %Neutrophils 70.6 % (42.0-75.0); Hematocrit 39.7 % (42.0-52.0); Hemoglobin 12.7 g/dL (14.0-18.0); Mean Corpuscular Hemoglobin 30.2 pg (27.0-31.0); Mean Corpuscular Volume 94.3 fL (78.0-98.0); Mean Platelet Volume 9.6 fL (7.4-10.4); Platelet Count 212 10x3/uL (130-400); Red Blood Cell (RBC) Count 4.21 mill/uL (4.70-6.10)
[2024-04-06 23:06] LABS: Troponin I Less than 0.010 ng/mL (< 0.028)
[2024-04-06 23:30] LABS: ALT (SGPT) 23 U/L (8-55); AST (SGOT) 20 U/L (5-34); Albumin 3.5 g/dL (3.4-4.8); Alkaline Phosphatase 213 U/L (40-110); Anion Gap 15 mmol/L (10-20); BUN (Urea Nitrogen) 19 mg/dL (8.4-25.7); Bilirubin, Total 0.5 mg/dL (0.2-1.2); Calc. Creatinine Clearance 0 mL/min (70-130); Calcium 9.1 mg/dL (7.8-10.44); Carbon Dioxide 22 mmol/L (23-31); Chloride 108 mmol/L (98-107); Estimated GFR 47; Globulin 3.2 g/dL (2.4-3.5); Glucose 233 mg/dL (83-110); Potassium 3.6 mmol/L (3.5-5.1); Protein, Total 6.7 g/dL (5.8-8.1); Sodium 141 mmol/L (136-145)
== END 2024-04-07 05:53 | disposition home or self-care (01) ==
LOC: ERS 20:22
DX: R53.83 Other fatigue (principal); R53.1 Weakness; E11.9 Type 2 diabetes mellitus without complications; I10 Essential (primary) hypertension
CPT/HCPCS: 36415; 71045; 80053; 83880; 84443; 84484; 85025; 85379; 93005

== ENCOUNTER 2024-04-09 22:38 | Observation (INO) | payer MEDICARE ==
[2024-04-09 23:10] LABS: #Basophils 0.05 10x3/uL (0.0-0.2); %Basophils 0.7 % (0.0-1.0); %Eosinophils 0.9 % (0.0-10.0); %Lymphocytes 15.6 % (21.0-51.0); %Neutrophils 72.2 % (42.0-75.0); Hemoglobin 12.4 g/dL (14.0-18.0); Mean Corpuscular Hemoglobin 30.1 pg (27.0-31.0); Mean Corpuscular Volume 97.1 fL (78.0-98.0); Mean Platelet Volume 9.6 fL (7.4-10.4); Platelet Count 199 10x3/uL (130-400); RBC Distribution Width 13.8 % (11.5-14.5); Red Blood Cell (RBC) Count 4.12 mill/uL (4.70-6.10)
[2024-04-09 23:27] LABS: ALT (SGPT) 21 U/L (8-55); AST (SGOT) 20 U/L (5-34); Albumin 3.3 g/dL (3.4-4.8); Alkaline Phosphatase 211 U/L (40-110); Anion Gap 14 mmol/L (10-20); BUN (Urea Nitrogen) 17 mg/dL (8.4-25.7); Bilirubin, Total 0.4 mg/dL (0.2-1.2); Calc. Creatinine Clearance 0 mL/min (70-130); Calcium 8.9 mg/dL (7.8-10.44); Carbon Dioxide 21 mmol/L (23-31); Chloride 109 mmol/L (98-107); Estimated GFR 51; Globulin 3.1 g/dL (2.4-3.5); Glucose 284 mg/dL (83-110); Potassium 3.9 mmol/L (3.5-5.1); Protein, Total 6.4 g/dL (5.8-8.1); Sodium 140 mmol/L (136-145)
[2024-04-10 00:01] LABS: Bacteria/HPF None Seen HPF (None Seen); Bilirubin Negative (Negative); Blood, Urine Negative (Negative); CAUTI Indications for Culture Alt mental st,lethar; Clarity Clear (Clear); Glucose, Urine (Dipstick) Greater than 1000 mg/dL (Negative); Ketone, Urine Negative (Negative); Leukocyte Negative Leu/uL (Negative); Nitrite Negative (Negative); Protein, Urine (Dipstick) Negative (Neg-Trace); RBC/HPF 0-3 HPF (0-3); Specific Gravity, Urine 1.023 (1.002-1.036); Squamous Epithelial None Seen HPF (0-3); Urobilinogen Normal mg/dL (Less than 2); WBC/HPF 0-3 HPF (0-3)
[2024-04-10 00:02] LABS: Urine Culture Reflex No No
[2024-04-10 02:14] LABS: Lactic Acid 2.73 mmol/L (0.5-2.2)
[2024-04-10] MEDS ORDERED: Ondansetron PF 4 MG/2 ML Vial IVP PRN (04:21)
[2024-04-10] MEDS ORDERED: Acetaminophen 650 MG Suppository PR PRN (04:21)
[2024-04-10] MEDS ORDERED: Ondansetron ODT 4 MG TAB PO PRN (04:21)
[2024-04-10 05:12] VITALS: BMI 30.2
[2024-04-10] MEDS: Acetaminophen 325 MG TAB PO SCH (05:54)
[2024-04-10] MEDS: Lactated Ringer's 500 ML IV SCH ×2 (06:06→07:54)
[2024-04-10] MEDS: Famotidine/PF 20 mg/2ml Vial SLOW IVP SCH (09:00)
[2024-04-10] MEDS: Famotidine 20 MG TAB PO SCH (09:00)
[2024-04-10] MEDS: Furosemide 20 MG TAB PO SCH (13:43)
[2024-04-10] MEDS ORDERED: Glucagon 1 MG/ML KIT IM PRN (14:14)
[2024-04-10] MEDS ORDERED: Dextrose 50% Abboject 50 ML SYRINGE SLOW IVP PRN (14:14)
[2024-04-10] MEDS ORDERED: Dextrose 5% in Water 1,000 ML IV PRN (14:14)
[2024-04-10] MEDS: Insulin Lispro 100 UNIT/ML 10 ML VIAL SC PRN (18:27)
[2024-04-10] MEDS: Carvedilol 6.25 MG TAB PO SCH (21:10)
[2024-04-10] MEDS: busPIRone HCl 5 MG TAB PO SCH (21:10)
[2024-04-11 08:41] VITALS: TEMP 98.1
[2024-04-11 08:44] LABS: #Basophils 0.05 10x3/uL (0.0-0.2); %Basophils 0.7 % (0.0-1.0); %Eosinophils 1.2 % (0.0-10.0); %Lymphocytes 16.2 % (21.0-51.0); %Monocytes 9.9 % (0.0-10.0); %Neutrophils 71.3 % (42.0-75.0); Hematocrit 42.9 % (42.0-52.0); Hemoglobin 13.5 g/dL (14.0-18.0); Mean Corpuscular HGB CONC 31.5 g/dL (32.0-36.0); Mean Corpuscular Volume 95.3 fL (78.0-98.0); Mean Platelet Volume 9.6 fL (7.4-10.4); Platelet Count 232 10x3/uL (130-400); RBC Distribution Width 13.8 % (11.5-14.5)
[2024-04-11 09:10] VITALS: BP 151/78
[2024-04-11 09:14] LABS: Anion Gap 16 mmol/L (10-20); BUN (Urea Nitrogen) 15 mg/dL (8.4-25.7); Calc. Creatinine Clearance 72 mL/min (70-130); Calcium 9.3 mg/dL (7.8-10.44); Carbon Dioxide 22 mmol/L (23-31); Chloride 105 mmol/L (98-107); Estimated GFR 57; Glucose 167 mg/dL (83-110); Potassium 3.6 mmol/L (3.5-5.1); Sodium 139 mmol/L (136-145)
[2024-04-11] MEDS: Empagliflozin 25 MG TAB PO SCH (09:14)
[2024-04-11] MEDS: Cyanocobalamin (Vitamin B-12) 1,000 MCG TAB PO SCH (09:14)
[2024-04-11] MEDS: glipiZIDE 5 MG TAB PO SCH (09:14)
[2024-04-11] MEDS: Finasteride 5 MG TAB PO SCH (09:14)
[2024-04-11] MEDS: Atorvastatin Calcium 40 MG TAB PO SCH (09:14)
[2024-04-11] MEDS: Donepezil HCl 5 MG TAB PO SCH (09:14)
[2024-04-11] MEDS: Pantoprazole DR 40 MG TAB PO SCH (09:15)
[2024-04-11] MEDS: Sertraline 25 MG TAB PO SCH (09:15)
[2024-04-13] MEDS ORDERED: FLU (Fluad Triv) TS24-25 (65UP)/MF59C/PF 45 MCG/0.5 ML Syringe IM ONE (09:00)
== END 2024-04-11 13:08 ==
LOC: ERS 22:38 → T4-B 04-10 04:08
PROVIDERS: ADMIT Student in an Organized Health Care Education/Training Program; ATTEND Internal Medicine
DX: R41.82 Altered mental status, unspecified (principal); E87.20 Acidosis, unspecified; I10 Essential (primary) hypertension; I25.10 Atherosclerotic heart disease of native coronary artery without angina pectoris; E11.9 Type 2 diabetes mellitus without complications; E78.5 Hyperlipidemia, unspecified; E86.0 Dehydration; F03.90 Unspecified dementia, unspecified severity, without behavioral disturbance, psychotic disturbance, mood disturbance, and anxiety; Z95.1 Presence of aortocoronary bypass graft; Z79.84 Long term (current) use of oral hypoglycemic drugs; Z79.899 Other long term (current) drug therapy
CPT/HCPCS: 71045; 80048; 80053; 81001; 82962 ×2; 83605 ×2; 85025 ×2; 93005; 97116; G0378 ×3; J1815; J7120; 36415; 36416

== ENCOUNTER 2024-06-14 15:48 | Emergency (ER) | payer MEDICARE ==
[2024-06-14 16:38] LABS: #Basophils 0.06 10x3/uL (0.0-0.2); %Basophils 0.6 % (0.0-1.0); %Eosinophils 0.3 % (0.0-10.0); %Lymphocytes 10.3 % (21.0-51.0); %Monocytes 9.1 % (0.0-10.0); %Neutrophils 79.2 % (42.0-75.0); Hematocrit 39.7 % (42.0-52.0); Hemoglobin 13.3 g/dL (14.0-18.0); Mean Corpuscular HGB CONC 33.5 g/dL (32.0-36.0); Mean Corpuscular Hemoglobin 30.2 pg (27.0-31.0); Mean Platelet Volume 9.6 fL (7.4-10.4); Platelet Count 244 10x3/uL (130-400); RBC Distribution Width 13.9 % (11.5-14.5); Red Blood Cell (RBC) Count 4.41 mill/uL (4.70-6.10)
[2024-06-14 16:55] LABS: Acetaminophen Less than 10 mcg/mL (Less than 10); Alcohol Less than 10.0 mg/dL (Less than 10); Salicylate Less than 8.0 mg/dL (Less than 8.0)
[2024-06-14 16:56] LABS: ALT (SGPT) 23 U/L (8-55); AST (SGOT) 20 U/L (5-34); Albumin 3.6 g/dL (3.4-4.8); Alkaline Phosphatase 161 U/L (40-110); Anion Gap 15 mmol/L (10-20); BUN (Urea Nitrogen) 21 mg/dL (8.4-25.7); Bilirubin, Total 0.6 mg/dL (0.2-1.2); CK (CPK) 74 U/L (30-200); Calc. Creatinine Clearance 0 mL/min (70-130); Calcium 9.2 mg/dL (7.8-10.44); Carbon Dioxide 21 mmol/L (23-31); Chloride 107 mmol/L (98-107); Estimated GFR 44; Globulin 3.7 g/dL (2.4-3.5); Glucose 284 mg/dL (83-110); Potassium 4.1 mmol/L (3.5-5.1); Protein, Total 7.3 g/dL (5.8-8.1); Sodium 139 mmol/L (136-145)
[2024-06-14 18:26] LABS: Amphetamine Not Detected (NotDetected); Bacteria/HPF None Seen HPF (None Seen); Barbiturates Screen Not Detected (NotDetected); Benzodiazepine Screen Not Detected (NotDetected); Bilirubin Negative (Negative); Blood, Urine Negative (Negative); CAUTI Indications for Culture Alt mental st,lethar; Clarity Clear (Clear); Cocaine Metabolite Screen Not Detected (NotDetected); Glucose, Urine (Dipstick) Greater than 1000 mg/dL (Negative); Ketone, Urine Negative (Negative); Leukocyte 75 Leu/uL (Negative); Methadone Not Detected (NotDetected); Methamphetamine Not Detected (NotDetected); Nitrite Negative (Negative); Opiate Screen Not Detected (NotDetected); Oxycodone Screen Not Detected (NotDetected); Phencyclidine (PCP) Not Detected (NotDetected); Protein, Urine (Dipstick) Negative (Neg-Trace); RBC/HPF 0-3 HPF (0-3); Specific Gravity, Urine 1.019 (1.002-1.036); Squamous Epithelial None Seen HPF (0-3); THC/Cannabinoid Screen Not Detected (NotDetected); Tricyclic Screen Not Detected (NotDetected); Urobilinogen Normal mg/dL (Less than 2)
[2024-06-14 18:28] LABS: Urine Culture Reflex Yes Yes
== END 2024-06-14 23:34 | disposition home or self-care (01) ==
LOC: ERS 15:48
DX: F03.918 Unspecified dementia, unspecified severity, with other behavioral disturbance (principal); E11.9 Type 2 diabetes mellitus without complications; I25.2 Old myocardial infarction; K21.9 Gastro-esophageal reflux disease without esophagitis; I10 Essential (primary) hypertension; E78.5 Hyperlipidemia, unspecified; Z79.899 Other long term (current) drug therapy
CPT/HCPCS: 36415; 70450; 72125; 80053; 80306; 80307; 81001; 82550; 84443; 85025; 87077; 87086; 87186; 93005

== ENCOUNTER 2024-12-02 16:19 | Inpatient (IN) | payer MEDICARE ==
[2024-12-02] MEDS ORDERED: Morphine 10 MG/ML VIAL ONE (17:12)
[2024-12-02 17:42] LABS: #Basophils 0.05 10x3/uL (0.0-0.2); #Eosinophils 0.06 10x3/uL (0.0-0.7); #Monocytes 0.87 10x3/uL (0.11-0.59); #Neutrophils 9.45 10x3/uL (1.40-6.50); %Basophils 0.4 % (0.0-1.0); %Eosinophils 0.5 % (0.0-10.0); %Lymphocytes 7.3 % (21.0-51.0); %Monocytes 7.7 % (0.0-10.0); %Neutrophils 83.3 % (42.0-75.0); Hematocrit 39.4 % (42.0-52.0); Hemoglobin 12.8 g/dL (14.0-18.0); Mean Corpuscular HGB CONC 32.5 g/dL (32.0-36.0); Mean Corpuscular Hemoglobin 29.1 pg (27.0-31.0); Mean Corpuscular Volume 89.5 fL (78.0-98.0); Mean Platelet Volume 9.5 fL (7.4-10.4); Platelet Count 233 10x3/uL (130-400); RBC Distribution Width 14.2 % (11.5-14.5); White Blood Cell (WBC) Count 11.35 10x3/uL (4.8-10.8)
[2024-12-02 18:01] LABS: INR-International Normal Ratio 1.1; PTT 30.3 sec (22.9-36.1)
[2024-12-02 18:02] LABS: ALT (SGPT) 19 U/L (Less than 45); AST (SGOT) 22 U/L (11-34); Albumin 3.7 g/dL (3.1-4.5); Alkaline Phosphatase 247 U/L (40-110); Anion Gap 15 mmol/L (10-20); BUN (Urea Nitrogen) 19 mg/dL (8.4-25.7); Bilirubin, Total 0.4 mg/dL (0.3-1.2); Calc. Creatinine Clearance 0 mL/min (70-130); Calcium 9.1 mg/dL (7.8-10.44); Carbon Dioxide 25 mmol/L (23-31); Chloride 106 mmol/L (98-107); Estimated GFR 53; Globulin 3.4 g/dL (2.4-3.5); Glucose 347 mg/dL (83-110); Potassium 4.1 mmol/L (3.5-5.1); Protein, Total 7.1 g/dL (5.8-8.1); Sodium 142 mmol/L (136-145)
[2024-12-02 18:05] LABS: Troponin I 0.017 ng/mL (< 0.028)
[2024-12-02] MEDS ORDERED: Azithromycin 500 MG VIAL ONE (18:42)
[2024-12-02] MEDS ORDERED: Sodium Chloride 0.9% 100 ML ONE (18:42)
[2024-12-02] MEDS ORDERED: cefTRIAXone (ROCEPHIN) 2 GM VIAL ONE (18:42)
[2024-12-02] MEDS ORDERED: Sodium Chloride 0.9% 250 ML 250 ML ONE (18:42)
[2024-12-02] MEDS ORDERED: Acetaminophen 325 MG TAB PO PRN (20:03)
[2024-12-02] MEDS ORDERED: Ondansetron ODT 4 MG TAB PO PRN (20:03)
[2024-12-02] MEDS ORDERED: Ondansetron PF 4 MG/2 ML Vial IVP PRN (20:03)
[2024-12-02] MEDS ORDERED: Ipratropium/Albuterol 3 ML NEB NEB PRN (20:08)
[2024-12-02] MEDS ORDERED: Sodium Chloride 0.9% 1,000 ML IV SCH (20:15)
[2024-12-02] MEDS ORDERED: Dextrose 50% Abboject 50 ML SYRINGE SLOW IVP PRN (20:18)
[2024-12-02] MEDS ORDERED: Glucagon 1 MG/ML KIT IM PRN (20:18)
[2024-12-02] MEDS ORDERED: Dextrose 5% in Water 1,000 ML IV PRN (20:18)
[2024-12-02] MEDS ORDERED: Famotidine/PF 20 mg/2ml Vial SLOW IVP SCH (21:00)
[2024-12-02] MEDS ORDERED: Famotidine 20 MG TAB PO SCH (21:00)
[2024-12-02 21:27] VITALS: BMI 29.7
[2024-12-02] MEDS: Carvedilol 6.25 MG TAB PO SCH (21:43)
[2024-12-02] MEDS: busPIRone HCl 5 MG TAB PO SCH (21:44)
[2024-12-02 23:24] LABS: Lactic Acid 2.78 mmol/L (0.50-2.20)
[2024-12-03] MEDS: Doxycycline 100 MG in Sodium Chloride 0.9% 100 ML IVPB SCH (01:42)
[2024-12-03] MEDS: Sodium Chloride 0.9% 1,000 ML IV SCH (01:43)
[2024-12-03 02:39] LABS: Lactic Acid 2.32 mmol/L (0.50-2.20)
[2024-12-03 04:13] LABS: #Basophils 0.04 10x3/uL (0.0-0.2); #Eosinophils 0.09 10x3/uL (0.0-0.7); #Monocytes 1.08 10x3/uL (0.11-0.59); #Neutrophils 8.65 10x3/uL (1.40-6.50); %Basophils 0.4 % (0.0-1.0); %Eosinophils 0.8 % (0.0-10.0); %Lymphocytes 7.7 % (21.0-51.0); %Monocytes 10.1 % (0.0-10.0); %Neutrophils 80.6 % (42.0-75.0); Hematocrit 36.3 % (42.0-52.0); Hemoglobin 11.6 g/dL (14.0-18.0); Mean Corpuscular Hemoglobin 29.2 pg (27.0-31.0); Mean Corpuscular Volume 91.4 fL (78.0-98.0); Mean Platelet Volume 9.9 fL (7.4-10.4); Platelet Count 208 10x3/uL (130-400); RBC Distribution Width 14.3 % (11.5-14.5); Red Blood Cell (RBC) Count 3.97 mill/uL (4.70-6.10); White Blood Cell (WBC) Count 10.73 10x3/uL (4.8-10.8)
[2024-12-03 04:30] LABS: ALT (SGPT) 17 U/L (Less than 45); AST (SGOT) 19 U/L (11-34); Albumin 3.3 g/dL (3.1-4.5); Alkaline Phosphatase 194 U/L (40-110); Anion Gap 13 mmol/L (10-20); BUN (Urea Nitrogen) 19 mg/dL (8.4-25.7); Bilirubin, Total 0.4 mg/dL (0.3-1.2); Calc. Creatinine Clearance 74 mL/min (70-130); Calcium 8.5 mg/dL (7.8-10.44); Carbon Dioxide 25 mmol/L (23-31); Chloride 109 mmol/L (98-107); Estimated GFR 61; Glucose 239 mg/dL (83-110); Potassium 3.8 mmol/L (3.5-5.1); Protein, Total 6.3 g/dL (5.8-8.1); Sodium 143 mmol/L (136-145)
[2024-12-03] MEDS: Insulin Lispro 100 UNIT/ML 10 ML VIAL SC PRN (06:05)
[2024-12-03] MEDS ORDERED: Furosemide 20 MG TAB PO SCH (09:00)
[2024-12-03] MEDS: Finasteride 5 MG TAB PO SCH (10:08)
[2024-12-03] MEDS: Atorvastatin Calcium 40 MG TAB PO SCH (10:08)
[2024-12-03] MEDS: Pantoprazole 40 MG DR.TAB PO SCH (10:08)
[2024-12-03] MEDS: Donepezil HCl 10 MG TAB PO SCH (10:09)
[2024-12-03] MEDS: Empagliflozin 25 MG TAB PO SCH (10:09)
[2024-12-03] MEDS: Sertraline 25 MG TAB PO SCH (10:09)
[2024-12-03] MEDS: Enoxaparin 30 MG (0.3 mL) SYRINGE SC SCH (10:10)
[2024-12-03] MEDS ORDERED: Acetaminophen 500 MG TAB PO PRN (13:38)
[2024-12-03] MEDS ORDERED: Bisacodyl 10 MG SUPP PR PRN (13:38)
[2024-12-03] MEDS: Lactated Ringer's 1,000 ML IV SCH (15:42)
[2024-12-03] MEDS ORDERED: OLANZapine 10 MG VIAL IM SCH ×3 (17:30)
[2024-12-03] MEDS: cefTRIAXone\\ROCEPHIN 2 GM in Sodium Chloride 0.9% 100 ML IVPB SCH (17:33)
[2024-12-03] MEDS: Sterile Water 10 ML VIAL FS SCH (18:14)
[2024-12-03] MEDS ORDERED: Azithromycin 500 MG in Sodium Chloride 0.9% 250 ML 250 ML IVPB SCH (20:00)
[2024-12-03 20:11] VITALS: BMI 29.7
[2024-12-04] MEDS: hydrALAZINE 25 MG TAB PO PRN (01:14)
[2024-12-04] MEDS: traMADol HCl 50 MG TAB PO PRN (01:14)
[2024-12-04 06:45] LABS: #Basophils 0.05 10x3/uL (0.0-0.2); #Eosinophils 0.21 10x3/uL (0.0-0.7); #Neutrophils 7.15 10x3/uL (1.40-6.50); %Basophils 0.5 % (0.0-1.0); %Eosinophils 2.3 % (0.0-10.0); %Lymphocytes 8.8 % (21.0-51.0); %Monocytes 9.8 % (0.0-10.0); %Neutrophils 78.1 % (42.0-75.0); Hematocrit 38.4 % (42.0-52.0); Hemoglobin 12.3 g/dL (14.0-18.0); Mean Corpuscular Hemoglobin 29.6 pg (27.0-31.0); Mean Corpuscular Volume 92.5 fL (78.0-98.0); Mean Platelet Volume 9.6 fL (7.4-10.4); Platelet Count 201 10x3/uL (130-400); RBC Distribution Width 14.2 % (11.5-14.5); Red Blood Cell (RBC) Count 4.15 mill/uL (4.70-6.10); White Blood Cell (WBC) Count 9.17 10x3/uL (4.8-10.8)
[2024-12-04 06:54] LABS: Anion Gap 16 mmol/L (10-20); BUN (Urea Nitrogen) 16 mg/dL (8.4-25.7); Calc. Creatinine Clearance 79 mL/min (70-130); Carbon Dioxide 19 mmol/L (23-31); Chloride 110 mmol/L (98-107); Estimated GFR 66; Glucose 144 mg/dL (83-110); Potassium 4.1 mmol/L (3.5-5.1); Sodium 141 mmol/L (136-145)
[2024-12-04] MEDS ORDERED: Electrolyte Replacement Protocol 1 EACH FS PRN (07:50)
[2024-12-04] MEDS: Cyanocobalamin (Vitamin B-12) 1,000 MCG TAB PO SCH (08:03)
[2024-12-04] MEDS: Cholecalciferol 1,000 UNITS (25 MCG) TAB PO SCH (08:04)
[2024-12-04] MEDS: Enoxaparin 40 MG (0.4 mL) SYRINGE SC SCH (08:04)
[2024-12-04] MEDS ORDERED: Electrolyte Replacement Protocol FS PRN (08:15)
[2024-12-04] MEDS: Thiamine 100 MG TAB PO SCH (09:42)
[2024-12-04] MEDS: Folic Acid 1 MG TAB PO SCH (09:42)
[2024-12-04] MEDS: Multivit, Therapeutic 1 TAB PO SCH (09:42)
[2024-12-04] MEDS: Acetaminophen 500 MG TAB PO PRN (20:41)
[2024-12-04] MEDS: Senokot S 8.6-50 MG TAB PO SCH (20:42)
[2024-12-04] MEDS ORDERED: Senokot S 8.6-50 MG TAB PO SCH (21:00)
[2024-12-04] MEDS: Insulin Lispro 100 UNIT/ML 10 ML VIAL SC PRN (21:43)
[2024-12-05 04:14] LABS: #Basophils 0.05 10x3/uL (0.0-0.2); #Eosinophils 0.25 10x3/uL (0.0-0.7); #Monocytes 1.06 10x3/uL (0.11-0.59); #Neutrophils 6.18 10x3/uL (1.40-6.50); %Basophils 0.6 % (0.0-1.0); %Lymphocytes 10.2 % (21.0-51.0); %Monocytes 12.6 % (0.0-10.0); %Neutrophils 73.1 % (42.0-75.0); Hematocrit 35.7 % (42.0-52.0); Hemoglobin 11.6 g/dL (14.0-18.0); Mean Corpuscular HGB CONC 32.5 g/dL (32.0-36.0); Mean Corpuscular Hemoglobin 29.7 pg (27.0-31.0); Mean Corpuscular Volume 91.3 fL (78.0-98.0); Mean Platelet Volume 9.4 fL (7.4-10.4); Platelet Count 189 10x3/uL (130-400); RBC Distribution Width 14.4 % (11.5-14.5); Red Blood Cell (RBC) Count 3.91 mill/uL (4.70-6.10); White Blood Cell (WBC) Count 8.44 10x3/uL (4.8-10.8)
[2024-12-05 04:30] LABS: Phosphorus 3.6 mg/dL (2.5-4.5)
[2024-12-05 04:32] LABS: Anion Gap 16 mmol/L (10-20); BUN (Urea Nitrogen) 24 mg/dL (8.4-25.7); Calc. Creatinine Clearance 72 mL/min (70-130); Calcium 8.7 mg/dL (7.8-10.44); Carbon Dioxide 21 mmol/L (23-31); Chloride 110 mmol/L (98-107); Estimated GFR 59; Glucose 178 mg/dL (83-110); Magnesium 2.1 mg/dL (1.6-2.6); Potassium 3.5 mmol/L (3.5-5.1); Sodium 143 mmol/L (136-145)
[2024-12-05] MEDS ORDERED: Cyanocobalamin (Vitamin B-12) 1,000 MCG TAB PO SCH (09:00)
[2024-12-05] MEDS: Ziprasidone 20 MG VIAL IM SCH ×2 (09:45→20:37)
[2024-12-05] MEDS ORDERED: Sterile Water 10 ML VIAL FS PRN (09:45)
[2024-12-05] MEDS: Potassium Chloride 20 MEQ TAB PO SCH ×2 (14:33→15:37)
[2024-12-05] MEDS: Doxycycline 100 MG in Sodium Chloride 0.9% 100 ML IVPB SCH (15:37)
[2024-12-05] MEDS: QUEtiapine 25 MG TAB PO SCH (17:13)
[2024-12-05] MEDS: risperiDONE 1 MG TAB PO SCH (20:01)
[2024-12-05] MEDS: Sterile Water 10 ML VIAL FS SCH (20:37)
[2024-12-06] MEDS: Haloperidol Lactate 5 MG/ML VIAL SLOW IVP SCH (02:42)
[2024-12-06 06:54] LABS: #Basophils 0.05 10x3/uL (0.0-0.2); %Basophils 0.5 % (0.0-1.0); %Lymphocytes 7.2 % (21.0-51.0); %Neutrophils 79.8 % (42.0-75.0); Hematocrit 40.5 % (42.0-52.0); Hemoglobin 12.8 g/dL (14.0-18.0); Mean Corpuscular HGB CONC 31.6 g/dL (32.0-36.0); Mean Corpuscular Hemoglobin 29.6 pg (27.0-31.0); Mean Corpuscular Volume 93.8 fL (78.0-98.0); Mean Platelet Volume 9.8 fL (7.4-10.4); Platelet Count 230 10x3/uL (130-400); RBC Distribution Width 14.2 % (11.5-14.5); Red Blood Cell (RBC) Count 4.32 mill/uL (4.70-6.10); White Blood Cell (WBC) Count 10.02 10x3/uL (4.8-10.8)
[2024-12-06 07:18] LABS: Anion Gap 15 mmol/L (10-20); BUN (Urea Nitrogen) 27 mg/dL (8.4-25.7); Calc. Creatinine Clearance 74 mL/min (70-130); Calcium 9.2 mg/dL (7.8-10.44); Carbon Dioxide 22 mmol/L (23-31); Chloride 114 mmol/L (98-107); Estimated GFR 61; Glucose 158 mg/dL (83-110); Potassium 4.4 mmol/L (3.5-5.1); Sodium 147 mmol/L (136-145)
[2024-12-06] MEDS: QUEtiapine 25 MG TAB PO SCH (09:43)
[2024-12-06] MEDS: Sodium Chloride 0.45% 1,000 ML IV SCH (11:55)
[2024-12-07 06:27] LABS: #Basophils 0.05 10x3/uL (0.0-0.2); #Eosinophils 0.17 10x3/uL (0.0-0.7); #Monocytes 0.99 10x3/uL (0.11-0.59); #Neutrophils 8.21 10x3/uL (1.40-6.50); %Basophils 0.5 % (0.0-1.0); %Eosinophils 1.7 % (0.0-10.0); %Lymphocytes 7.1 % (21.0-51.0); %Monocytes 9.7 % (0.0-10.0); %Neutrophils 80.4 % (42.0-75.0); Hematocrit 38.8 % (42.0-52.0); Hemoglobin 12.2 g/dL (14.0-18.0); Mean Corpuscular HGB CONC 31.4 g/dL (32.0-36.0); Mean Corpuscular Hemoglobin 29.3 pg (27.0-31.0); Mean Corpuscular Volume 93.3 fL (78.0-98.0); Mean Platelet Volume 9.3 fL (7.4-10.4); Platelet Count 224 10x3/uL (130-400); RBC Distribution Width 14.2 % (11.5-14.5); Red Blood Cell (RBC) Count 4.16 mill/uL (4.70-6.10)
[2024-12-07 06:56] LABS: Anion Gap 15 mmol/L (10-20); BUN (Urea Nitrogen) 25 mg/dL (8.4-25.7); Calc. Creatinine Clearance 84 mL/min (70-130); Calcium 8.6 mg/dL (7.8-10.44); Carbon Dioxide 18 mmol/L (23-31); Chloride 114 mmol/L (98-107); Estimated GFR 71; Glucose 111 mg/dL (83-110); Potassium 4.1 mmol/L (3.5-5.1); Sodium 143 mmol/L (136-145)
[2024-12-07] MEDS ORDERED: Sterile Water 10 ML VIAL FS PRN (18:15)
[2024-12-07] MEDS: Ziprasidone 20 MG VIAL IM SCH (18:26)
[2024-12-07] MEDS ORDERED: risperiDONE 1 MG TAB PO SCH (21:00)
[2024-12-08] MEDS: LevoFLOXacin 500 MG TAB PO SCH (04:52)
[2024-12-08 06:04] LABS: #Basophils 0.08 10x3/uL (0.0-0.2); #Eosinophils 0.04 10x3/uL (0.0-0.7); #Monocytes 1.43 10x3/uL (0.11-0.59); %Basophils 0.5 % (0.0-1.0); %Eosinophils 0.2 % (0.0-10.0); %Lymphocytes 3.9 % (21.0-51.0); %Monocytes 8.9 % (0.0-10.0); %Neutrophils 85.9 % (42.0-75.0); Hematocrit 46.6 % (42.0-52.0); Hemoglobin 14.3 g/dL (14.0-18.0); Mean Corpuscular HGB CONC 30.7 g/dL (32.0-36.0); Mean Corpuscular Hemoglobin 28.5 pg (27.0-31.0); Mean Platelet Volume 9.5 fL (7.4-10.4); Platelet Count 305 10x3/uL (130-400); RBC Distribution Width 14.3 % (11.5-14.5); Red Blood Cell (RBC) Count 5.01 mill/uL (4.70-6.10); White Blood Cell (WBC) Count 16.06 10x3/uL (4.8-10.8)
[2024-12-08 06:22] LABS: Anion Gap 20 mmol/L (10-20); BUN (Urea Nitrogen) 27 mg/dL (8.4-25.7); Calc. Creatinine Clearance 78 mL/min (70-130); Calcium 9.5 mg/dL (7.8-10.44); Carbon Dioxide 15 mmol/L (23-31); Chloride 112 mmol/L (98-107); Estimated GFR 65; Glucose 130 mg/dL (83-110); Potassium 4.3 mmol/L (3.5-5.1); Sodium 143 mmol/L (136-145)
[2024-12-08] MEDS: Dextrose 5% in Water 1,000 ML IV SCH (08:52)
[2024-12-08] MEDS: risperiDONE 1 MG TAB PO SCH (17:13)
[2024-12-09 05:44] LABS: #Basophils 0.07 10x3/uL (0.0-0.2); #Eosinophils Less than 0.03 10x3/uL (0.0-0.7); #Monocytes 1.68 10x3/uL (0.11-0.59); #Neutrophils 15.82 10x3/uL (1.40-6.50); %Basophils 0.4 % (0.0-1.0); %Lymphocytes 4.1 % (21.0-51.0); %Monocytes 9.1 % (0.0-10.0); %Neutrophils 85.8 % (42.0-75.0); Hematocrit 40.6 % (42.0-52.0); Hemoglobin 13.1 g/dL (14.0-18.0); Mean Corpuscular HGB CONC 32.3 g/dL (32.0-36.0); Mean Corpuscular Hemoglobin 29.3 pg (27.0-31.0); Mean Corpuscular Volume 90.8 fL (78.0-98.0); Mean Platelet Volume 9.6 fL (7.4-10.4); Platelet Count 286 10x3/uL (130-400); RBC Distribution Width 14.4 % (11.5-14.5); Red Blood Cell (RBC) Count 4.47 mill/uL (4.70-6.10); White Blood Cell (WBC) Count 18.44 10x3/uL (4.8-10.8)
[2024-12-09 05:58] LABS: Anion Gap 17 mmol/L (10-20); BUN (Urea Nitrogen) 33 mg/dL (8.4-25.7); Calc. Creatinine Clearance 79 mL/min (70-130); Calcium 9.3 mg/dL (7.8-10.44); Carbon Dioxide 15 mmol/L (23-31); Chloride 113 mmol/L (98-107); Estimated GFR 66; Glucose 178 mg/dL (83-110); Potassium 3.7 mmol/L (3.5-5.1); Sodium 141 mmol/L (136-145)
[2024-12-09] MEDS: risperiDONE 1 MG TAB PO SCH (20:37)
[2024-12-10 06:41] LABS: #Basophils 0.05 10x3/uL (0.0-0.2); #Eosinophils Less than 0.03 10x3/uL (0.0-0.7); #Monocytes 1.15 10x3/uL (0.11-0.59); #Neutrophils 12.47 10x3/uL (1.40-6.50); %Basophils 0.3 % (0.0-1.0); %Lymphocytes 5.2 % (21.0-51.0); %Monocytes 7.9 % (0.0-10.0); %Neutrophils 85.6 % (42.0-75.0); Hematocrit 44.2 % (42.0-52.0); Hemoglobin 14.2 g/dL (14.0-18.0); Mean Corpuscular HGB CONC 32.1 g/dL (32.0-36.0); Mean Corpuscular Hemoglobin 29.4 pg (27.0-31.0); Mean Corpuscular Volume 91.5 fL (78.0-98.0); Mean Platelet Volume 9.9 fL (7.4-10.4); Platelet Count 323 10x3/uL (130-400); RBC Distribution Width 14.5 % (11.5-14.5); Red Blood Cell (RBC) Count 4.83 mill/uL (4.70-6.10); White Blood Cell (WBC) Count 14.56 10x3/uL (4.8-10.8)
[2024-12-10 07:17] LABS: Anion Gap 20 mmol/L (10-20); BUN (Urea Nitrogen) 41 mg/dL (8.4-25.7); Calc. Creatinine Clearance 75 mL/min (70-130); Calcium 9.4 mg/dL (7.8-10.44); Carbon Dioxide 15 mmol/L (23-31); Chloride 112 mmol/L (98-107); Estimated GFR 62; Glucose 171 mg/dL (83-110); Potassium 3.3 mmol/L (3.5-5.1); Sodium 144 mmol/L (136-145)
[2024-12-10] MEDS: Potassium Chloride 20 MEQ TAB PO SCH (08:39)
[2024-12-10] MEDS: Potassium Chloride 20 MEQ in Premix 1 BAG IVPB SCH (12:34)
[2024-12-11 06:38] LABS: #Basophils 0.08 10x3/uL (0.0-0.2); #Eosinophils Less than 0.03 10x3/uL (0.0-0.7); #Monocytes 1.31 10x3/uL (0.11-0.59); #Neutrophils 10.31 10x3/uL (1.40-6.50); %Basophils 0.6 % (0.0-1.0); %Eosinophils 0.1 % (0.0-10.0); %Lymphocytes 8.1 % (21.0-51.0); %Monocytes 10.1 % (0.0-10.0); %Neutrophils 79.3 % (42.0-75.0); Hematocrit 42.9 % (42.0-52.0); Hemoglobin 13.7 g/dL (14.0-18.0); Mean Corpuscular HGB CONC 31.9 g/dL (32.0-36.0); Mean Corpuscular Hemoglobin 29.1 pg (27.0-31.0); Mean Corpuscular Volume 91.3 fL (78.0-98.0); Mean Platelet Volume 9.8 fL (7.4-10.4); Platelet Count 373 10x3/uL (130-400); RBC Distribution Width 14.4 % (11.5-14.5)
[2024-12-11 06:56] LABS: Anion Gap 17 mmol/L (10-20); BUN (Urea Nitrogen) 43 mg/dL (8.4-25.7); Calc. Creatinine Clearance 78 mL/min (70-130); Calcium 9.2 mg/dL (7.8-10.44); Carbon Dioxide 19 mmol/L (23-31); Chloride 113 mmol/L (98-107); Estimated GFR 64; Glucose 159 mg/dL (83-110); Potassium 3.5 mmol/L (3.5-5.1); Sodium 145 mmol/L (136-145)
[2024-12-11] MEDS: Potassium Chloride 20 MEQ TAB PO SCH (08:18)
[2024-12-11] MEDS: Lorazepam 2 MG/ML VIAL SLOW IVP SCH (12:25)
[2024-12-12 06:18] LABS: #Basophils 0.15 10x3/uL (0.0-0.2); #Eosinophils 0.03 10x3/uL (0.0-0.7); #Monocytes 1.16 10x3/uL (0.11-0.59); #Neutrophils 8.79 10x3/uL (1.40-6.50); %Basophils 1.3 % (0.0-1.0); %Eosinophils 0.3 % (0.0-10.0); %Lymphocytes 11.5 % (21.0-51.0); %Monocytes 9.9 % (0.0-10.0); %Neutrophils 74.7 % (42.0-75.0); Hematocrit 47.2 % (42.0-52.0); Hemoglobin 14.4 g/dL (14.0-18.0); Mean Corpuscular HGB CONC 30.5 g/dL (32.0-36.0); Mean Corpuscular Hemoglobin 29.4 pg (27.0-31.0); Mean Corpuscular Volume 96.5 fL (78.0-98.0); Mean Platelet Volume 10.8 fL (7.4-10.4); Platelet Count 348 10x3/uL (130-400); RBC Distribution Width 14.7 % (11.5-14.5); Red Blood Cell (RBC) Count 4.89 mill/uL (4.70-6.10); White Blood Cell (WBC) Count 11.75 10x3/uL (4.8-10.8)
[2024-12-12 06:37] LABS: Anion Gap 16 mmol/L (10-20); BUN (Urea Nitrogen) 42 mg/dL (8.4-25.7); Calc. Creatinine Clearance 69 mL/min (70-130); Calcium 9.4 mg/dL (7.8-10.44); Carbon Dioxide 16 mmol/L (23-31); Chloride 118 mmol/L (98-107); Estimated GFR 55; Glucose 149 mg/dL (83-110); Sodium 146 mmol/L (136-145)
[2024-12-12] MEDS: Sodium Bicarbonate Tab 325 MG TAB PO SCH (08:59)
[2024-12-12 19:16] VITALS: BP 155/94; TEMP 97.9
== END 2024-12-12 22:12 | DRG 871 ==
LOC: ERS 16:19 → 2NO 20:03 → OBSVTOIN 12-03 08:37 → T4-B 12-03 15:03
PROVIDERS: ADMIT Internal Medicine; ATTEND Family Medicine
DX: A41.59 Other Gram-negative sepsis (principal); J15.69 Pneumonia due to other Gram-negative bacteria; F03.93 Unspecified dementia, unspecified severity, with mood disturbance; L03.115 Cellulitis of right lower limb; L03.116 Cellulitis of left lower limb; I13.0 Hypertensive heart and chronic kidney disease with heart failure and stage 1 through stage 4 chronic kidney disease, or unspecified chronic kidney disease; I50.32 Chronic diastolic (congestive) heart failure; F03.911 Unspecified dementia, unspecified severity, with agitation; E87.20 Acidosis, unspecified; J96.11 Chronic respiratory failure with hypoxia; Z66 Do not resuscitate; R65.20 Severe sepsis without septic shock; E87.6 Hypokalemia; K21.9 Gastro-esophageal reflux disease without esophagitis; F32.A Depression, unspecified; E78.5 Hyperlipidemia, unspecified; E11.22 Type 2 diabetes mellitus with diabetic chronic kidney disease; N18.30 Chronic kidney disease, stage 3 unspecified; R13.12 Dysphagia, oropharyngeal phase; N40.0 Benign prostatic hyperplasia without lower urinary tract symptoms; Z99.81 Dependence on supplemental oxygen; I25.2 Old myocardial infarction; Z95.1 Presence of aortocoronary bypass graft; Z79.899 Other long term (current) drug therapy; Z79.84 Long term (current) use of oral hypoglycemic drugs; Z78.1 Physical restraint status
CPT/HCPCS: 36415; 36416; 51701; 51798; 70450; 71045; 72125; 72170; 80048; 80053; 82607; 83605; 83735; 83880; 84100; 84145; 84484; 85025; 85610; 85730; 87040; 87086; 93005; 93010; 93970; 94760; 96365; 96367; 96375; G0378; J0456; J0696; J1630; J1650; J1815; J2060; J2270; J3480; J3486; J7030; J7050; J7070; J7120

== ENCOUNTER 2025-01-20 15:21 | Inpatient (IN) | payer MEDICARE ==
[2025-01-20 17:30] VITALS: BMI 36.9
[2025-01-20] MEDS ORDERED: Ondansetron PF 4 MG/2 ML Vial IVP PRN (17:31)
[2025-01-20] MEDS ORDERED: Glucagon 1 MG/ML KIT IM PRN (17:53)
[2025-01-20] MEDS ORDERED: Dextrose 50% Abboject 50 ML SYRINGE SLOW IVP PRN (17:53)
[2025-01-20] MEDS: QUEtiapine 25 MG TAB PO SCH (19:43)
[2025-01-20] MEDS: Carvedilol 6.25 MG TAB PO SCH (19:43)
[2025-01-20] MEDS: Sodium Bicarbonate Tab 325 MG TAB PO SCH (19:43)
[2025-01-20] MEDS: Acetaminophen 325 MG TAB PO PRN (19:44)
[2025-01-21 04:14] LABS: #Basophils 0.03 10x3/uL (0.0-0.2); #Eosinophils 0.05 10x3/uL (0.0-0.7); #Monocytes 0.58 10x3/uL (0.11-0.59); #Neutrophils 3.30 10x3/uL (1.40-6.50); %Basophils 0.6 % (0.0-1.0); %Eosinophils 1.0 % (0.0-10.0); %Lymphocytes 18.6 % (21.0-51.0); %Monocytes 11.9 % (0.0-10.0); %Neutrophils 67.5 % (42.0-75.0); Hematocrit 30.9 % (42.0-52.0); Hemoglobin 9.8 g/dL (14.0-18.0); Mean Corpuscular Hemoglobin 29.6 pg (27.0-31.0); Mean Corpuscular Volume 93.4 fL (78.0-98.0); Platelet Count 196 10x3/uL (130-400); Red Blood Cell (RBC) Count 3.31 mill/uL (4.70-6.10); White Blood Cell (WBC) Count 4.89 10x3/uL (4.8-10.8)
[2025-01-21 04:52] LABS: Anion Gap 13 mmol/L (10-20); BUN (Urea Nitrogen) 8 mg/dL (8.4-25.7); Calc. Creatinine Clearance 96 mL/min (70-130); Calcium 8.0 mg/dL (7.8-10.44); Carbon Dioxide 24 mmol/L (23-31); Chloride 112 mmol/L (98-107); Glucose 101 mg/dL (83-110); Magnesium 1.8 mg/dL (1.6-2.6); Potassium 3.2 mmol/L (3.5-5.1); Sodium 146 mmol/L (136-145)
[2025-01-21] MEDS: Folic Acid 1 MG TAB PO SCH (09:01)
[2025-01-21] MEDS: Cholecalciferol 1,000 UNITS (25 MCG) TAB PO SCH (09:02)
[2025-01-21] MEDS: Sertraline 25 MG TAB PO SCH (09:02)
[2025-01-21] MEDS: Cyanocobalamin (Vitamin B-12) 1,000 MCG TAB PO SCH (09:02)
[2025-01-21] MEDS: Pantoprazole 40 MG DR.TAB PO SCH (09:02)
[2025-01-21] MEDS: QUEtiapine 25 MG TAB PO SCH (09:03)
[2025-01-21] MEDS: Finasteride 5 MG TAB PO SCH (09:03)
[2025-01-21] MEDS: Ondansetron PF 4 MG/2 ML Vial ONE (12:13)
[2025-01-21 13:31] LABS: Hemoglobin 11.1 g/dL (14.0-18.0)
[2025-01-21 15:21] VITALS: BMI 36.9
[2025-01-21] MEDS: hydrALAZINE 20 MG/ML VIAL SLOW IVP PRN (16:34)
[2025-01-21] MEDS: ALPRAZolam 0.25 MG TAB PO PRN (19:34)
[2025-01-22 04:24] LABS: #Basophils 0.04 10x3/uL (0.0-0.2); #Eosinophils 0.04 10x3/uL (0.0-0.7); #Monocytes 0.79 10x3/uL (0.11-0.59); #Neutrophils 5.96 10x3/uL (1.40-6.50); %Basophils 0.5 % (0.0-1.0); %Eosinophils 0.5 % (0.0-10.0); %Lymphocytes 13.4 % (21.0-51.0); %Monocytes 9.9 % (0.0-10.0); %Neutrophils 74.9 % (42.0-75.0); Hematocrit 37.9 % (42.0-52.0); Hemoglobin 11.8 g/dL (14.0-18.0); Mean Corpuscular Hemoglobin 29.5 pg (27.0-31.0); Mean Corpuscular Volume 94.8 fL (78.0-98.0); Platelet Count 247 10x3/uL (130-400); Red Blood Cell (RBC) Count 4.00 mill/uL (4.70-6.10); White Blood Cell (WBC) Count 7.96 10x3/uL (4.8-10.8)
[2025-01-22 05:13] LABS: Anion Gap 13 mmol/L (10-20); BUN (Urea Nitrogen) 7 mg/dL (8.4-25.7); Calc. Creatinine Clearance 93 mL/min (70-130); Calcium 8.8 mg/dL (7.8-10.44); Carbon Dioxide 26 mmol/L (23-31); Chloride 116 mmol/L (98-107); Glucose 142 mg/dL (83-110); Magnesium 2.1 mg/dL (1.6-2.6); Potassium 4.3 mmol/L (3.5-5.1); Sodium 151 mmol/L (136-145)
[2025-01-22] MEDS: NIFEdipine XL 30 MG ER.TAB PO SCH (09:31)
[2025-01-22 16:43] LABS: Sodium 146 mmol/L (136-145)
[2025-01-23 05:49] LABS: Anion Gap 14 mmol/L (10-20); BUN (Urea Nitrogen) 5 mg/dL (8.4-25.7); Calc. Creatinine Clearance 98 mL/min (70-130); Calcium 8.7 mg/dL (7.8-10.44); Carbon Dioxide 23 mmol/L (23-31); Chloride 112 mmol/L (98-107); Glucose 141 mg/dL (83-110); Potassium 3.6 mmol/L (3.5-5.1); Sodium 145 mmol/L (136-145)
[2025-01-23 12:44] VITALS: BP 118/64; TEMP 98
== END 2025-01-23 16:20 | DRG 884 ==
LOC: 2NO 16:47 → OBSVTOIN 01-21 12:02 → T4-B 01-23 12:29
PROVIDERS: ADMIT Internal Medicine; ATTEND Emergency Medicine
DX: F03.90 Unspecified dementia, unspecified severity, without behavioral disturbance, psychotic disturbance, mood disturbance, and anxiety (principal); J69.0 Pneumonitis due to inhalation of food and vomit; I50.32 Chronic diastolic (congestive) heart failure; I13.0 Hypertensive heart and chronic kidney disease with heart failure and stage 1 through stage 4 chronic kidney disease, or unspecified chronic kidney disease; E87.1 Hypo-osmolality and hyponatremia; E11.22 Type 2 diabetes mellitus with diabetic chronic kidney disease; D63.1 Anemia in chronic kidney disease; N18.30 Chronic kidney disease, stage 3 unspecified; Z51.5 Encounter for palliative care; Z66 Do not resuscitate; E78.5 Hyperlipidemia, unspecified; N40.0 Benign prostatic hyperplasia without lower urinary tract symptoms; E11.9 Type 2 diabetes mellitus without complications
CPT/HCPCS: 36415; 36416; 80048; 83735; 85025; 93306; 93970; G0378; J0295; J0360; J3486; J7070